=== PATIENT | male | born 1980 | race Caucasian/White ===

== ENCOUNTER 2016-06-19 10:50 | Day surgery (SDC) | payer BC ==
[~2016-06-19] VITALS: Ht 188 cm; Wt 90.7 kg
[~2016-06-19 10:50] MED LIST: CEFAZOLIN 2GM PREMIX 50 ML IV PRN; FENTANYL PF 100 MCG/2 ML VIAL. IV PRN; HEPARIN 1,000 UNIT in IV NORMAL SALINE 1,000 ML for SURG PERIOP IRR ONE; HYDR-971 PO; HYDROMORPHONE 2 MG/ML VIAL. IV PRN; IBUP-1027 PO; IBUPROFEN 200 MG TABLET PO PRN; IV RINGERS,LACTATED 1000ML 1,000 ML IV SCH; LIDOCAINE 1% 1 ML SYRINGE. ID PRN; MORPHINE SULFATE 2 MG/ML DISP.SYRIN. IV PRN; OMEG1CAP16 PO; OMEG1CAP38 PO; ONDANSETRON PF 4 MG/2 ML VIAL. IV PRN; PROAIR HFA8.5 GM INH; PROCHLORPERAZINE 10 MG/2 ML VIAL. IV PRN
[2016-06-19] MEDS ORDERED: FENTANYL PF 250 MCG/5 ML VIAL. ONE (11:11)
[2016-06-19] MEDS ORDERED: MIDAZOLAM HCL 2 MG/2 ML VIAL. ONE (11:11)
[2016-06-19] MEDS ORDERED: SEVOFLURANE 31 TO 60 MINUTES. IH ONE (11:12)
[2016-06-19] MEDS ORDERED: PROPOFOL 20 ML IV ONE (11:12)
[2016-06-19] MEDS ORDERED: DEXAMETHASONE SOD PHOS 20 MG/5 ML VIAL. ONE (11:12)
[2016-06-19] MEDS ORDERED: FAMOTIDINE 20 MG/2 ML VIAL ONE (11:12)
[2016-06-19] MEDS ORDERED: LIDOCAINE 2% 100 MG/5 ML DISP.SYRIN. ONE (11:12)
[2016-06-19] MEDS ORDERED: ONDANSETRON PF 4 MG/2 ML VIAL. ONE (11:12)
--- NOTE | 2016-06-19 11:14 | PDOC ---
SURGICAL PROGRESS NOTE Subjective 35 yo M with biliary dyskinesia and gallstone pancreatitis TO OR for lap brandi with grams R/B/a d/w pt and pt's family Office note H&P reviewed and unchanged DOTTY GARCIA MD Jun 19, 2016 11:14
[2016-06-19] MEDS ORDERED: ROCURONIUM 50 MG/5 ML VIAL. ONE (11:16)
[2016-06-19] MEDS ORDERED: BUPIVAC MPF-EPI 0.5%-1:200000 30 ML VIAL. ONE (11:30)
[2016-06-19] MEDS ORDERED: SURGICEL HEMOSTAT 2X3 EACH. ONE (11:31)
[2016-06-19] MEDS ORDERED: BISACODYL 10 MG SUPP.RECT ONE (11:31)
[2016-06-19] MEDS ORDERED: IOHEXOL 300 MG/ML 50 ML VIAL. ONE (11:31)
--- NOTE | 2016-06-19 12:38 | RAD ---
C-arm fluoroscopy with fluoroscopic spot images Clinical indications:. Cholecystectomy. Intraoperative cholangiogram Total fluoroscopic time: 0.8 minutes. Total fluoroscopic spot images:1. IMPRESSION: This fluoroscopic image demonstrates opacification of the extra hepatic biliary tree. No stricture or stone is evident. Free flow of contrast material from the common bile duct into the duodenum is seen.
--- NOTE | 2016-06-19 12:51 | PDOC ---
BRIEF OPERATIVE NOTE Pre-Op Diagnosis Biliary dyskinesia, gallstone pancreatitis Post-Op Diagnosis same Procedure Performed Lap brandi with grams Surgeon Jose De Jesus Anesthesia Type: General, Local Blood Loss 50 IV Fluid 1500 Specimens Obtained GB Findings wnl IOC Complications none Additional Remarks [id number] DOTTY GARCIA MD Jun 19, 2016 12:51
[2016-06-19] MEDS ORDERED: HYDR-2666 PO (13:33)
[2016-06-19] MEDS ORDERED: DOCU-27 PO (13:33)
[2016-06-19 13:49] VITALS: BP 118/70
[2016-06-19] MEDS ORDERED: HYDROCODONE/APAP 5/325MG TABLET. PO PRN ×2 (14:00)
--- NOTE | 2016-06-20 05:30 | OP ---
DATE OF SURGERY: 06/19/2016 REFERRING PHYSICIANS: Dr. Pat Verduzco, Dr. Greg Roche. Thank you for the consult. PREOPERATIVE DIAGNOSES: Biliary dyskinesia, gallstone pancreatitis. POSTOPERATIVE DIAGNOSES: Biliary dyskinesia, gallstone pancreatitis. PROCEDURE: Laparoscopic cholecystectomy with intraoperative cholangiogram. SURGEON: Nain Dela Cruz MD ESTIMATED BLOOD LOSS: Minimal. COMPLICATIONS: None. FINDINGS: Grossly normal appearing gallbladder, normal appearing intraoperative cholangiogram. INDICATIONS: This is a 35-year-old male who presents previously to the hospital for complaints of epigastric, right upper quadrant abdominal pain. Lipase had been significantly elevated on presentation greater than 4000, but this had come down. Imaging had been essentially unremarkable. PIPIDA scan demonstrated decreased ejection fraction of 18%. Subsequently, it was felt the patient would best be served by laparoscopic cholecystectomy with intraoperative cholangiogram. The patient and patient's family were informed of the risks, benefits, alternatives of the procedure, risks including but not limited to bleeding, infection, damage to surrounding structures, risk of anesthesia, risk of an open procedure. The patient and patient's family appeared to understand, their questions were answered and they agreed to proceed. DESCRIPTION OF PROCEDURE: After obtaining informed consent, the patient was taken to the operating room, induced under general endotracheal anesthetic. The patient was prepped and draped in the usual fashion in the anterior abdominal wall. A 0.5% Marcaine with epinephrine was injected in the supraumbilical area. An incision was made using a 15 blade scalpel. A 5 mm nonbladed trocar was introduced in the abdominal cavity under direct vision of the laparoscope. Pneumoperitoneum was established. Additional 12 port was placed in the epigastrium, another 5 mm port was placed in the right upper quadrant, all under direct vision of the laparoscope. The abdominal cavity was explored. The liver was normal in appearance. The gallbladder was grossly normal in appearance. The visualized portion of the viscera was normal in appearance. There was no evidence of other pathology in the abdominal cavity. There was no evidence of trocar injury. The gallbladder was grasped. The triangle of Calot was exposed. The peritoneum overlying the cystic duct was taken down using blunt dissection. Circumferential dissection was performed of the cystic duct at the cystic duct-infundibulum junction. An anterior cystic artery was identified and divided between clips. A clip was placed on the cystic duct-infundibulum junction and clips were placed on the cystic artery. An incision was made in the cystic duct using EndoShears. Cholangiogram catheter was introduced and cholangiogram was obtained. Cholangiogram demonstrated normal appearing hepatic ducts, normal appearing common bile duct, free extravasation into the duodenum. Cholangiogram catheter was removed. Multiple clips were placed on the cystic duct stump including Hem-o-gregorio and the cystic duct was divided. The cystic artery was divided between the previously placed clips. The gallbladder was taken off the gallbladder fossa sharply using electrocautery. The gallbladder was placed in an EndoCatch bag and brought out through the epigastric port and passed off the field and sent to pathology for evaluation. There was no spillage of bile. There was no dilatation of the epigastric port. The abdominal cavity was copiously irrigated with normal saline solution. There was no evidence of bleeding or bile leak at the time of closure. All ports were removed under direct vision of the laparoscope. There was no evidence of port site bleeding. The fascial defect in the epigastrium was reapproximated using interrupted 0 Vicryl stitch using Endo Close. All skin incisions were reapproximated using multiple interrupted 4-0 Monocryl in subcuticular fashion. Sterile dressing was placed over all wounds. The patient tolerated the procedure well and was discharged to the recovery room in stable condition. All counts were correct. There were no immediate complications. NAIN DELA CRUZ MD DR: ENA/ana JOB#: [id number] / [id number] GREG Fernandez KAROL MD MTDD
--- NOTE | 2016-06-20 16:11 | PATHOLOGY ---
PATHOLOGY REPORT * * * * * * * * FINAL DIAGNOSIS: Gallbladder, laparoscopic cholecystectomy: - Chronic cholecystitis. COMMENT: There are no calculi identified within the gallbladder lumen or specimen container. There is no evidence of malignancy. (HENRIM:; d/t: 06/20/16) REPORT ELECTRONICALLY SIGNED BY: Ambrocio Hassan M.D. DATE/TIME: 06/20/2016 16:11 * * * * * * * * GROSS PATHOLOGY: Received in formalin labeled "George Rubalcava and gallbladder sac with contents," is a 7.4 x 2.8 x 1.8 cm, intact gallbladder with pink-rainey, slightly hemorrhagic, and wrinkled serosal surfaces. Opening the gallbladder reveals dark green and velvety mucosa and an average wall thickness of 0.1 cm. Calculi are not present and no masses are noted grossly. [employer] sections from the body and fundus are submitted along with the proximal margin in cassette A1. (TTL; 06/19/2016) INITIAL CPT CODE(S): A; 39444 Professional services performed [place] [facility] [place] [address] Technical services performed by [facility] at [address] [place] [address] [address], [place] [address]. SPECIMEN(S) RECEIVED: A.Gallbladder sac and contents CLINICAL HISTORY: Gallbladder pancreatitis , biliary dyskinesia PATIENT: GEORGE RUBALCAVA /AGE: 207/03/1980 (Age: 35) PATIENT #: [id number] ALT CASE #: SPECIMEN COLLECTION DATE: 06/19/2016 SPECIMEN RECEIVED DATE: 06/19/2016 [facility] - [address] [place] [address] - PHONE: [phone] * * * END OF REPORT * * *
== END 2016-06-19 14:35 | disposition home or self-care (01) ==
LOC: SURG 10:50
PROVIDERS: ATTEND Surgery
DX: K81.1 Chronic cholecystitis (principal); K85.10 Biliary acute pancreatitis without necrosis or infection; J45.909 Unspecified asthma, uncomplicated; Z98.52 Vasectomy status; F10.99 Alcohol use, unspecified with unspecified alcohol-induced disorder
CPT/HCPCS: 47563; 74300; C1782; J0690; J1100; J2250; J2405; J2704; J3010; J3490; J7030; J7120; Q9967; S0028; 88304